=== PATIENT | male | born 1950 | race Caucasian/White ===

== ENCOUNTER 2016-10-24 21:10 | Inpatient (IN) | payer MEDICARE, OTHER ==
--- NOTE | ~2016-10-24 | CN ---
Consultation Report [facility] [address] [place]. [address] NAME: DE ARMAS : 50 STATUS : ADM IN PAT#: [id number] AGE: 66 ADM/REG DATE : 10/25/16 MR#: [id number] REPORT SERV DATE: 10/27/16 DICTATED BY: NATO PAN JR. DATE: 10/26/16 REPORT STATUS : Draft TRANSCRIBED BY: MODAndree DATE: 10/26/16 DATE OF CONSULTATION: 10/26/2016 [facility] MECHANIC: Dr. Rios. REASON FOR CONSULTATION: Atrial fibrillation with slow ventricular response with long pauses up to 3.8 seconds. No current symptoms. 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 BNP elevated at 413 in the presence of obesity, obstructive sleep apnea with only occasional CPAP use at home. Chronic atrial fibrillation with rate control with digitalis and nadolol. Renal function worse recently, therefore, affects of nadolol may be magnified. Also digitalis affect may be magnified. He is diabetic, hypertensive, hyperlipidemic. BMI is 43. He has been hospitalized in the past for what has been called diastolic CHF. He is on Pradaxa for anticoagulation with his chronic atrial fibrillation. He has coronary heart disease, but has a MPI from August of this year, which showed no ischemia. Hospital medication list reviewed. Home medication list reviewed. Allergic to Celebrex. Presume also allergic to sulfa, etc. FAMILY HISTORY: Noncontributory. SOCIAL HISTORY: Unkempt, lethargic. Obstructive sleep apnea, noncompliant with regular CPAP use. No illicit drugs. PHYSICAL EXAMINATION: VITAL SIGNS: Blood pressure 111/68, pulse is 65 and irregularly irregular with rates between 46 and 76 charted today. Long pauses are noted on telemetry strips, however. Respirations 16, afebrile. HEENT: No xanthelasma. NECK: No JVD at 30 degrees, no thyromegaly, no carotid bruit. LUNGS: Few wheezes and rhonchi are audible. COR: No thrills, heaves, normal S1, S2. No gallop. No rub. No murmur. ABD: Soft, nontender, no hepatosplenomegaly, no mass. EXT: Bilateral pitting edema. MS: Back without spine or costovertebral angle tenderness. NEURO: Symmetric findings. Echocardiogram from approximately six weeks ago shows mild left ventricular enlargement with mixed CHF, ejection fraction 45% with global hypokinesis and moderate left atrial enlargement. Consultation Report [facility] [address] [place]. [address] NAME: DE ARMAS : 50 STATUS : ADM IN PAT#: [id number] AGE: 66 ADM/REG DATE : 10/25/16 MR#: [id number] REPORT SERV DATE: 10/27/16 DICTATED BY: NATO PAN JR. DATE: 10/26/16 REPORT STATUS : Draft TRANSCRIBED BY: MODL DATE: 10/26/16 MPI unremarkable earlier this year as well. Troponins have been borderline at 0.04 and 0.05. DISCUSSION: Long pauses with chronic atrial fibrillation on digitalis and nadolol, both of which are excreted through kidneys. Kidney function is a bit worse at 1.3 creatinine. TSH is normal. Troponins are flat. No angina. Chest x-ray clear currently. PLAN: Hold beta-valente and digitalis and provide p.r.n. atropine if necessary. Perhaps switch to carvedilol instead of nadolol due to renal excretion of the nadolol. May try to get by without digitalis. CARLOS/RAMBO Nato Pan Jr., M.D. / [id number] CC: Rashmi Pineda M.D.
--- NOTE | ~2016-10-24 | HP ---
History And Physical [facility] [address] [facility] [place]. [address] NAME: DE LAZO : 50 STATUS : ADM Haritha PAT#: [id number] AGE: 66 ADM/REG DATE : 10/25/16 MR#: [id number] REPORT SERV DATE: 10/25/16 DICTATED BY: RICARDO PRESCOTT DATE: 10/25/16 REPORT STATUS : Draft TRANSCRIBED BY: MODL DATE: 10/25/16 DATE OF ADMISSION: 10/25/2016 CHIEF COMPLAINT: Shortness of breath and cough. HISTORY OF PRESENT ILLNESS: This is a 66-year-old male with a history of congestive heart failure, coronary artery disease with stents and atrial fibrillation who presents to the emergency room at [facility] with the above-mentioned complaint. History is obtained from the patient, and reviewing data available on the [employer] system. According to the patient, he had been in his usual state of health until about a week or two ago, when he suddenly started having shortness of breath and progressive dyspnea with exertion. He also noticed his feet were swelling up. His legs were swelling up. He also had a nonproductive cough which had become so bad in the last two days or so when he actually passed out while he was sitting on a recliner and had a severe bout of coughing. He did not call anybody when he came to but he says he was out for an unknown period of time. Today, his symptoms continued, and he finally decided to come to the emergency room to be evaluated. In the emergency room, he appeared to have an exacerbation of his congestive heart failure with volume overload and an elevated troponin as well, and Hospitalist Service is asked to admit him for further evaluation and treatment. At the time of my evaluation, he denied any chest pain or palpitations. He did have orthopnea. He had a cough, which was essentially nonproductive, not associated with hemoptysis, night sweats, or weight loss. He did have syncopal episode as mentioned above. He did feel feverish, but had not checked his temperature. No chills. He did not have any nausea, vomiting, or diarrhea. No other history of recent travel or exposures. PAST MEDICAL HISTORY: Significant for coronary artery disease with stent, history of atrial fibrillation on Pradaxa, history of COPD with obstructive sleep apnea, hypertension, diabetes mellitus type 2. He also has depression. SOCIAL HISTORY: He does not smoke, drink, or use recreational drugs. FAMILY HISTORY: Noncontributory. MEDICATIONS: At home were reviewed by me in the chart today and reordered by me. REVIEW OF SYSTEMS: As in history of present illness. All other systems were reviewed in detail and are quite unremarkable. PHYSICAL EXAMINATION: GENERAL: This is a pleasant 66-year old, who is not in any acute distress. He is alert, History And Physical [address] [address] NAME: DE LAZO : 50 STATUS : ADM Haritha PAT#: [id number] AGE: 66 ADM/REG DATE : 10/25/16 MR#: [id number] REPORT SERV DATE: 10/25/16 DICTATED BY: RICARDO PRESCOTT DATE: 10/25/16 REPORT STATUS : Draft TRANSCRIBED BY: RAMBO DATE: 10/25/16 awake, oriented to time, place, and person. HEENT: His head is atraumatic, normocephalic. His pupils are equal, reacting to light and accommodating. External ocular muscles are intact. Membranes are moist and pink. Sclerae are nonicteric. NECK: Supple with no jugular venous distention, lymphadenopathy, or thyromegaly. LUNGS: Clear to auscultation with no wheezes, rubs, or crackles. HEART: Heart sounds were regular with no murmurs, rubs, or gallops. ABDOMEN: Soft, nontender. Bowel sounds are present. EXTREMITIES: Showed bilateral pitting lower extremity edema with no cyanosis or clubbing. NEUROLOGIC: Grossly intact. No focal deficits. He was able to move all four extremities. VITAL SIGNS: His temperature was 101.5, pulse 80, respirations 20 a minute, blood pressure was 169/105, oxygen saturations were 96%, breathing 2 L of oxygen via nasal cannula. LABORATORY DATA: Reviewed on the [employer] system showed a pH of 7.37 on arterial blood gas,. PCO2 was 45, PaO2 97, and bicarb was 24.4. This was on 2 L of oxygen via nasal cannula. His CMP was within normal limits. Blood glucose 153, his magnesium was 1.0, and calcium 7.5. Troponin was 0.05. Lactate was 1.5 today. CBC showed a white blood cell count of 9800, hemoglobin was 12.6, hematocrit 39.4, and platelet count was 168,000. His prothrombin time was 16 and INR 1.3 today. Urinalysis was grossly unremarkable. Films of the chest x- ray were reviewed by me on the PACS today and interpreted by me. Per my interpretation, there are increased vascular markings consistent with congestive heart failure. There are no lobar consolidations or effusions seen. Otherwise normal bony architecture. A 12-lead EKG done in the emergency room was reviewed and interpreted by me. There is atrial fibrillation at a rate of 81 per minute without any acute ST-T changes. IMPRESSION: 1. Acute on chronic diastolic congestive heart failure. 2. Volume overload. 3. Elevated troponin. 4. Hypomagnesemia. 5. Chronic obstructive pulmonary disease with acute exacerbation. 6. Diabetes mellitus type 2. 7. Depression. PLAN: 1. We will admit Mr. Lazo to the Hospitalist Service with telemetry for a 24-hour observation. We will give him IV diuretics for volume overload, strict I's and O's and daily weights as well. He had echo done on September 15 so we will defer an echocardiogram again at this point. We will follow serial troponin levels and consult Cardiology if abnormal. We believe it may be due to his volume overload and congestive heart failure. We will start blood sugar control with NovoLog given subcutaneously. 2. Bronchodilator treatments and supplemental oxygen. Continue supplemental oxygen therapy. We will continue other treatments for sleep apnea and other treatments that he is on at home. We will also replace magnesium right now, and follow up in the morning as well. 3. He is on Pradaxa. We will continue this as well. History And Physical [address] [address] NAME: DE LAZO : 50 STATUS : ADM Haritha PAT#: [id number] AGE: 66 ADM/REG DATE : 10/25/16 MR#: [id number] REPORT SERV DATE: 10/25/16 DICTATED BY: RICARDO PRESCOTT DATE: 10/25/16 REPORT STATUS : Draft TRANSCRIBED BY: MODL DATE: 10/25/16 I have discussed the above plans with the patient. Questions were answered, and he is agreeable to the above recommendations. Hospitalist Service will be following him during his stay here. /RAMBO Ricardo Prescott M.D. / [id number] CC: Lenard Lind MD
--- NOTE | ~2016-10-24 | IDS ---
Interim Discharge Summary [facility] [address] [place]. [address] NAME: DE LAZO : 50 STATUS : ADM IN PAT#: [id number] AGE: 66 ADM/REG DATE : 10/25/16 MR#: [id number] REPORT SERV DATE: 10/29/16 DICTATED BY: VIOLA BRICE DATE: 10/29/16 REPORT STATUS : Draft TRANSCRIBED BY: MODAndree DATE: 10/29/16 ADMISSION DATE: 10/25/2016 DISCHARGE DATE: DIAGNOSES: 1. Systolic and diastolic congestive heart failure exacerbation. 2. Fluid overload. 3. Fever resolved, suspect secondary to upper respiratory infection. 4. Atrial fibrillation with sinus pauses. 5. Troponinemia. 6. History of obstructive sleep apnea. 7. Post-tussive syncope resolved. 8. Type 2 diabetes. CONSULTANTS: Cardiology with Dr. Pan. HOSPITALISTS: Dr. Ricardo Dubois and Dr. Brice. HOSPITAL COURSE: Please see H and P dictated by Dr. Dubois. This is a 66 years old male with a past medical history of atrial fibrillation, ischemic cardiomyopathy, presented with shortness of breath and increased lower extremity edema. The patient states he had a coughing fit and actually experienced a syncopal episode after coughing while sitting in his recliner. The patient presented to [facility] ER in fluid overload. He was admitted to a bus driver/monitor and placed on IV diuretics for diuresing. Also, electrolytes were replaced. Also being seen for mild elevation of troponin which is secondary to fluid overload. No signs of ACS. Also Cardiology were consulted. The patient was noted to have some sinus pauses, therefore Cardiology stopped the patient's nadolol as well as digoxin, however, approximately two days later, the patient had another recurrence of sinus pauses. According to Cardiology, the patient requires approximately 5 days to allow all blockadal medications to come out of his system and states if the patient has any recurrence of sinus pauses after 5 to 6 days, then at that time, to consider a pacemaker; however, they recommend for the patient to follow up in their office. The patient is improving but with slow progression, still has some signs of fluid overload but with good negative balance for urine output. We will give an extra dose of IV Bumex with his scheduled Bumex for better diuresing. We will consult Physical Therapy for evaluation. Also nurses as of yet to check O2 saturation with ambulation. The patient will be followed by Dr. Benjamin Gomez, who will attend to Mr. Lazo's care. [facility]/MODL Viola Brice M.D. Interim Discharge Summary [address] [address] NAME: DE LAZO : 50 STATUS : ADM IN [facility]#: [id number] AGE: 66 ADM/REG DATE : 10/25/16 MR#: [id number] REPORT SERV DATE: 10/29/16 DICTATED BY: VIOLA BRICE DATE: 10/29/16 REPORT STATUS : Draft TRANSCRIBED BY: RAMBO DATE: 10/29/16 / [id number] CC: Viola Brice M.D.
--- NOTE | ~2016-10-24 | DS ---
Discharge Summary [address] [address] NAME: DE ARMAS : 50 STATUS : DIS IN PAT#: [id number] AGE: 66 ADM/REG DATE : 10/25/16 MR#: [id number] REPORT SERV DATE: 11/02/16 DICTATED BY: ALYCIA GOMEZ DATE: 11/01/16 REPORT STATUS : Draft TRANSCRIBED BY: MODL DATE: 11/01/16 ADMISSION DATE: 10/25/2016 DISCHARGE DATE: 11/01/2016 DISCHARGE DIAGNOSES: 1. Acute on chronic hypoxemic respiratory failure. 2. Acute on chronic mixed congestive heart failure with left ventricular ejection fraction of 45%. 3. Chronic atrial fibrillation, on Pradaxa. 4. Pauses while on digoxin and nadolol resolved off same, now on rate control with carvedilol. 5. Coronary artery disease, post stenting, positive troponin this admission, demand ischemia. 6. Chronic obstructive pulmonary disease. 7. Morbid obesity. 8. Sleep apnea. 9. Obesity hypoventilation syndrome. 10.Type 2 diabetes. 11.Hypertension. 12.Gout. 13.Depression. 14.Chronic anemia. 15.Hemoccult-positive stool with history of EGD 10/2012 showing gastritis, colonoscopy 10/2012 showing colon polyps. Further outpatient followup needed. 16.Syncope, present on admission. 17.Fever, present on admission. 18.Acute kidney injury, present on admission. 19.Hearing impairment. OPERATIONS AND PROCEDURES: None. PRESENT ILLNESS: This is a 66-year-old white male who was triaged in the emergency room on 10/24/2016 at 1947 hours complaining of shortness of breath. Admission vital signs; blood pressure 169/105, temp 101.5, pulse 80, respirations 20, and O2 saturation 96% on 2 L. After evaluation in the emergency room, he was referred to the Hospitalist Service for admission. He was seen by Dr. Ricardo Dubois and admitted as described on admission history and physical examination. Additional history included one to two weeks of progressive shortness of breath, nonproductive cough, and leg swelling. ADDITIONAL HISTORY: Per Dr. Dubois. PHYSICAL EXAMINATION: Per Dr. Dubois. Discharge Summary [address] [address] NAME: DE ARMASN : 50 STATUS : DIS IN PAT#: [id number] AGE: 66 ADM/REG DATE : 10/25/16 MR#: [id number] REPORT SERV DATE: 11/02/16 DICTATED BY: ALYCIA GOMEZ DATE: 11/01/16 REPORT STATUS : Draft TRANSCRIBED BY: RAMBO DATE: 11/01/16 ADMISSION LABORATORY: Per Dr. Dubois. HOSPITAL COURSE: He was admitted to [address] [place] [address] with impression: 1. Acute on chronic diastolic heart failure. 2. Volume overload. 3. Elevated troponin. 4. Hypomagnesemia. 5. COPD with acute exacerbation. 6. Diabetes type 2. 7. Depression. His hospitalist care was assumed by Dr. Rashmi Pineda. His hospital course from admission through 10/29/2016 is as outlined on interim summary dictated by Dr. Pineda on 10/29/2016. His hospitalist care was assumed by the undersigned on 10/30/2016. He was followed through discharge. Over the course of his hospitalization, he diuresed 11.6 kg. Associated with this, there was improvement, but not complete resolution in his dyspnea. There was resolution in his lower extremity edema. His O2 saturation at rest on 10/31/2016 was 87%. This dropped further with ambulation the day of discharge to 83%. He is on home O2 at night. He will need 24-hour O2 at this time. He did not have further syncopal episodes while hospitalized. Additional history obtained after admission included this occurred with protracted coughing while sitting in his recliner. Off nadolol and digoxin, his atrial fibrillation rate increased. He was started on carvedilol by Cardiology. His heart rate was satisfactorily controlled with this. He had fever on admission. He was treated with Zithromax. His fever resolved. A procalcitonin level was 0.40 on admission. His white blood cell count was 9.8 and remained normal while hospitalized. Influenza screening, urinary streptococcal, and urinary Legionella antigen screenings were all negative. Urinalysis did not show any discrete abnormalities, and two blood cultures were no growth. Followup chest x-rays did not show any definite infiltrate. His creatinine was 1.09 on admission. It increased to 1.34 on the 7th and was 1.15 at discharge. His hemoglobin was 12.6 on admission and 13.7 at discharge. A ferritin was 223 and a B12 level 363. No monoclonal protein was present on a serum protein electrophoresis. One stool was checked for occult blood and is positive. This will need further followup by Dr. Malik on office followup. Discharge Summary [facility] [id number] [place]. [address] NAME: DE ARMAS : 50 STATUS : DIS IN PAT#: [id number] AGE: 66 ADM/REG DATE : 10/25/16 MR#: [id number] REPORT SERV DATE: 11/02/16 DICTATED BY: ALYCIA GOMEZ DATE: 11/01/16 REPORT STATUS : Draft TRANSCRIBED BY: RAMBO DATE: 11/01/16 He was seen by the heart failure team and will be followed up at discharge. He was seen by Physical Therapy and home with Home Health Care Physical Therapy was recommended. He was seen by [facility] Cardiology, Dr. Rios, today as well as the undersigned. He is symptomatically near baseline and it is felt that he has achieved a level of improvement and stability where he could be safely discharged home. He will see Dr. Malik in seven days. He will see Dr. Rios in three to four weeks. He will have [facility] for home evaluation, med rec, OT and PT evaluation and treatment. DISCHARGE MEDICATIONS: Stiolto Respimat one puff twice daily, Bumex 2 mg twice daily, colchicine 0.6 mg daily, carvedilol 3.125 mg twice daily, Celexa 40 mg daily, Pradaxa 150 mg twice daily, Prinivil 2.5 mg daily, Prilosec 40 mg daily, potassium 10 mEq daily, Percocet 10/325 four times daily as needed, Klonopin 1 mg daily as needed, Crestor 10 mg daily, Flexeril 10 mg daily as needed, Voltaren gel as needed, and Mucinex as needed. He will not take Lanoxin or Corgard. He was counseled regarding the use of Klonopin, Percocet, and Flexeril. It was suggested that he limit his use of these medications to nighttime if possible. It was suggested that if he takes a daytime dose that he get in a chair, place his oxygen on, and not get up until the effects wear off. He was asked not to drive under the influence of these medications. Home O2 was arranged for 24-hour use. Discharge time greater than 30 minutes. DICTATED BY: Alycia Gomez M.D. DD/RAMBO Alycia Gomez M.D. / [id number] CC: Enedina Benítez M.D. W. Timothy Ballard, M.D.
[~2016-10-24 21:10] MED LIST: AMB10 PO; AMBIEN CR12.5 MG PO; ATV1 PO; BUM1 PO; CALTRAT600 PO; CARDCD180 PO; CELEXA40 MG PO; CENTRUM TAB1 TAB PO; COR20 PO; COREG; COUMADIN6 MG PO; CRESTOR10 PO; CRESTOR5 MG PO; DIGITEK0.125 MG PO; DIOVAN HCT320 MG/25 PO; DIOVAN/HCT; FLEX PO; FLEXERIL5 MG PO; GLUCOPHAGE1000 MG PO; GLUCOPHXR PO; GLUCPH PO; HYCODAN1 M1 PO; IBU400 PO; IRON TABS; IRON325 MG PO; K-TABS10 MEQ PO; KLOR-CON 1010 MEQ PO; L40 PO; LEVAQUIN750 MG PO; LEXAPRO10 PO; LORTAB10 PO; MAGOX4 PO; NADOL; OYST-CAL500 MG PO; P20 PO; PERCOCET1 TA4 PO; POTASSIUM; PRADAXA150 MG PO; PRADAXA75 MG PO; PRILO PO; PRILOSEC40 MG PO; SPIRIVA INH; SYMBICORT 160/41 INH INH; UNKNOWN MEDS
[2016-10-24 21:51] LABS: BE (BASE EXCESS) -1.5 MEQ/L (0 +/- 2.5); CARBOXYHEMOGLOBIN 0.1 % (0-3); DEVICE NC; HCO3 (ACTUAL BICARBONATE) 24.4 MEQ/L (23-27); HEMOBLOGIN CONTENT 12.9 G/DL (14-18); INSTRUMENT SERIAL # 8087; METHEMOGLOBIN 0.1 % (0-3); O2 CONTENT 16.7 VOL% (18-24); PCO2 (CO2 TENSION) 45 MMHG (35-45); PO2 (O2 TENSION) 97 MMHG (79-93); SAMPLE Arterial; pH 7.35 (7.37-7.43)
[2016-10-24] MEDS ORDERED: PERCOCET 10/3251 TAB PO (22:33)
[2016-10-24] MEDS ORDERED: CELEXA40 MG PO (22:34)
[2016-10-24] MEDS ORDERED: BUM2 PO (22:34)
[2016-10-24] MEDS ORDERED: STIOLTO RESPIMAT4 GM INH (22:34)
[2016-10-24] MEDS ORDERED: KLONO1 PO (22:35)
[2016-10-24] MEDS ORDERED: LAN125 PO (22:35)
[2016-10-24] MEDS ORDERED: PRILOSEC40 MG PO (22:35)
[2016-10-24] MEDS ORDERED: COR40 PO (22:35)
[2016-10-24] MEDS ORDERED: CRESTOR10 PO (22:36)
[2016-10-24] MEDS ORDERED: FLEX PO (22:36)
[2016-10-24] MEDS ORDERED: COLCRYS0.6 MG PO (22:36)
[2016-10-24] MEDS ORDERED: KDUR10 PO (22:36)
[2016-10-24] MEDS ORDERED: PRADAXA150 MG PO (22:36)
[2016-10-24] MEDS ORDERED: VOLTAREN1 % TOP (22:38)
[2016-10-24 22:39] LABS: BASOPHILS 0.2 %; BASOPHILS ABSOLUTE 0.02 10/3/uL (0.0-0.16); ER CBC TAT 0 Hrs 07 Mins; HEMATOCRIT 39.4 % (40.0-51.0); HEMOGLOBIN 12.6 g/dL (13.6-17.8); IMMATURE GRANULOCYTES 0.4 %; IMMATURE GRANULOCYTES ABSOLUTE 0.04 10/3/uL (0.0-0.11); LYMPHOCYTES 16.3 %; LYMPHOCYTES ABSOLUTE 1.59 10/3/uL (0.67-4.30); MEAN CORPUSCULAR HEMOGLOB 29.2 pg (26.0-34.0); MEAN CORPUSCULAR VOLUME 91.4 fL (80-100); MEAN PLATELET VOLUME 9.2 fL (9.2-13.0); MONOCYTES 6.7 %; MONOCYTES ABSOLUTE 0.66 10/3/uL (0.21-1.20); NEUTROPHILS 74.4 %; NEUTROPHILS ABSOLUTE 7.27 10/3/uL (2.02-8.40); RED CELL COUNT 4.31 10/6/uL (4.7-6.1); WHITE BLOOD CELLS 9.8 10/3/uL (4.5-10.5)
[2016-10-24 22:42] LABS: MANUAL DIFF NO %; PLATELET COUNT 168 10/3/uL (150-400); RBC DISTRIBUTION WIDTH 15.7 % (12.0-16.0)
[2016-10-24 22:48] LABS: INTERNATIONAL NORMAL RATI 1.3 UNITS (-); PARTIAL THROMBO TIME 38.6 SEC (22.5-37.2); PROTIME (NOT ORD) 16.1 SEC (12.0-14.5)
[2016-10-24] MEDS ORDERED: COLD PO (22:54)
[2016-10-24] MEDS ORDERED: MUCINEX COUGH PO (22:54)
[2016-10-24 22:55] LABS: ACETAMINOPHEN LEVEL (TYLENOL) 8.7 MCG/ML (10.0-20.0); BUN (BLOOD UREA NITROGEN) 20 MG/DL (6-23); CALCIUM, SERUM 7.5 MG/DL (8.5-10.4); CHLORIDE, SERUM 109 MMOL/L (96-112); CO2 (CARBON DIOXIDE) 27 MMOL/L (24-34); CREATININE 1.09 MG/DL (0.70-1.30); GFR AFRICAN AMERICAN 82 ML/MIN (>=60); GFR NON AFRICAN AMERICAN 70 ML/MIN (>=60); GLUCOSE, SERUM 153 MG/DL (60-99); POTASSIUM, SERUM 4.3 MMOL/L (3.5-5.3); SODIUM, SERUM 143 MMOL/L (135-148)
[2016-10-24 22:57] LABS: CHEST PAIN PROFILE TAT 0 Hrs 25 Mins; TROPONIN I 0.05 NG/ML (<0.05)
[2016-10-24 22:58] LABS: ALCOHOL < 10 MG/DL (0); SALICYLATE < 1.7 MG/DL (-)
[2016-10-24 23:18] LABS: ASCORBIC ACID (UR NOT ORDER) 40 (NEG); BILIRUBIN, URINE NEGATIVE (NEG); ER URINALYSIS TAT 0 Hrs 00 Mins; KETONE, URINE NEGATIVE (NEG); LEUKOCYTE ESTERASE(NOT OR NEG (NEG); NITRITE (URINE) NEG (NEG); WBC (NOT ORDERED) (RFLEX) 5 (0-5)
[2016-10-24 23:58] LABS: AMPHETAMINES (NOT ORD) NEG (NEG); BARBITURATES (NOT ORDERED NEG (NEG); BENZODIAZEPINES (NOT ORD) NEG (NEG); CANNABINOIDS (THC) NEG (NEG); COCAINE (NOT ORDERED) NEG (NEG); PHENCYCLIDINE(PCP) NEG (NEG); TRICYCLICS NEG (NEG)
[2016-10-24 23:59] LABS: OPIATES NEG (NEG)
[2016-10-25 06:02] LABS: BASOPHILS 0.2 %; BASOPHILS ABSOLUTE 0.02 10/3/uL (0.0-0.16); EOSINOPHILS 2.4 %; EOSINOPHILS ABSOLUTE 0.21 10/3/uL (0.0-0.53); HEMATOCRIT 39.2 % (40.0-51.0); HEMOGLOBIN 12.4 g/dL (13.6-17.8); IMMATURE GRANULOCYTES 0.8 %; IMMATURE GRANULOCYTES ABSOLUTE 0.07 10/3/uL (0.0-0.11); LYMPHOCYTES 12.7 %; LYMPHOCYTES ABSOLUTE 1.12 10/3/uL (0.67-4.30); MANUAL DIFF NO %; MEAN CORPUS HGB CONC 31.6 g/dL (32.0-36.0); MEAN CORPUSCULAR HEMOGLOB 29.2 pg (26.0-34.0); MEAN CORPUSCULAR VOLUME 92.5 fL (80-100); MEAN PLATELET VOLUME 9.5 fL (9.2-13.0); MONOCYTES 10.9 %; MONOCYTES ABSOLUTE 0.96 10/3/uL (0.21-1.20); NEUTROPHILS ABSOLUTE 6.43 10/3/uL (2.02-8.40); PLATELET COUNT 165 10/3/uL (150-400); RBC DISTRIBUTION WIDTH 15.6 % (12.0-16.0); RED CELL COUNT 4.24 10/6/uL (4.7-6.1); WHITE BLOOD CELLS 8.8 10/3/uL (4.5-10.5)
[2016-10-25 06:22] LABS: BUN (BLOOD UREA NITROGEN) 20 MG/DL (6-23); CALCIUM, SERUM 7.8 MG/DL (8.5-10.4); CHLORIDE, SERUM 106 MMOL/L (96-112); CO2 (CARBON DIOXIDE) 24 MMOL/L (24-34); CREATININE 1.04 MG/DL (0.70-1.30); GFR AFRICAN AMERICAN 86 ML/MIN (>=60); GFR NON AFRICAN AMERICAN 74 ML/MIN (>=60); GLUCOSE, SERUM 163 MG/DL (60-99); TROPONIN I 0.04 NG/ML (<0.05)
[2016-10-25 06:23] LABS: PHOSPHORUS, SERUM 3.6 MG/DL (2.5-4.5); SODIUM, SERUM 136 MMOL/L (135-148)
[2016-10-26 05:32] LABS: CALCIUM, SERUM 7.6 MG/DL (8.5-10.4); CHLORIDE, SERUM 105 MMOL/L (96-112); CO2 (CARBON DIOXIDE) 25 MMOL/L (24-34); CREATININE 1.34 MG/DL (0.70-1.30); GFR AFRICAN AMERICAN 64 ML/MIN (>=60); GFR NON AFRICAN AMERICAN 55 ML/MIN (>=60); GLUCOSE, SERUM 176 MG/DL (60-99); POTASSIUM, SERUM 4.2 MMOL/L (3.5-5.3); SODIUM, SERUM 134 MMOL/L (135-148)
[2016-10-26 05:33] LABS: BUN (BLOOD UREA NITROGEN) 26 MG/DL (6-23)
[2016-10-26 14:27] LABS: INFLUENZA A SCREEN NEGATIVE (NEGATIVE); INFLUENZA B SCREEN NEGATIVE (NEGATIVE)
[2016-10-27 04:51] LABS: BUN (BLOOD UREA NITROGEN) 26 MG/DL (6-23); CALCIUM, SERUM 7.9 MG/DL (8.5-10.4); CHLORIDE, SERUM 103 MMOL/L (96-112); CO2 (CARBON DIOXIDE) 28 MMOL/L (24-34); GFR AFRICAN AMERICAN 73 ML/MIN (>=60); GFR NON AFRICAN AMERICAN 63 ML/MIN (>=60); GLUCOSE, SERUM 150 MG/DL (60-99); POTASSIUM, SERUM 4.3 MMOL/L (3.5-5.3); SODIUM, SERUM 133 MMOL/L (135-148)
[2016-10-28 10:50] LABS: POTASSIUM, SERUM 4.5 MMOL/L (3.5-5.3)
[2016-10-29 08:42] LABS: BUN (BLOOD UREA NITROGEN) 26 MG/DL (6-23); CALCIUM, SERUM 8.8 MG/DL (8.5-10.4); CHLORIDE, SERUM 99 MMOL/L (96-112); CREATININE 1.03 MG/DL (0.70-1.30); GFR AFRICAN AMERICAN 87 ML/MIN (>=60); GFR NON AFRICAN AMERICAN 75 ML/MIN (>=60); GLUCOSE, SERUM 144 MG/DL (60-99); POTASSIUM, SERUM 4.3 MMOL/L (3.5-5.3)
[2016-10-29 08:44] LABS: CO2 (CARBON DIOXIDE) 35 MMOL/L (24-34); SODIUM, SERUM 140 MMOL/L (135-148)
[2016-10-30 10:39] LABS: BUN (BLOOD UREA NITROGEN) 29 MG/DL (6-23); CHLORIDE, SERUM 95 MMOL/L (96-112); CO2 (CARBON DIOXIDE) 38 MMOL/L (24-34); GFR AFRICAN AMERICAN 90 ML/MIN (>=60); GFR NON AFRICAN AMERICAN 78 ML/MIN (>=60); POTASSIUM, SERUM 4.1 MMOL/L (3.5-5.3); SODIUM, SERUM 140 MMOL/L (135-148)
[2016-10-30 10:40] LABS: GLUCOSE, SERUM 214 MG/DL (60-99)
[2016-10-30 12:09] LABS: FERRITIN 223 NG/ML (26-388)
[2016-10-30 14:14] LABS: T PROTEIN (ELECT)(NOT OR 6.8 G/DL (6.0-8.5)
[2016-10-30 16:09] LABS: BASOPHILS 0.2 %; BASOPHILS ABSOLUTE 0.01 10/3/uL (0.0-0.16); EOSINOPHILS 1.2 %; EOSINOPHILS ABSOLUTE 0.07 10/3/uL (0.0-0.53); HEMATOCRIT 42.6 % (40.0-51.0); HEMOGLOBIN 13.9 g/dL (13.6-17.8); IMMATURE GRANULOCYTES 1.2 %; IMMATURE GRANULOCYTES ABSOLUTE 0.07 10/3/uL (0.0-0.11); LYMPHOCYTES 24.8 %; LYMPHOCYTES ABSOLUTE 1.51 10/3/uL (0.67-4.30); MANUAL DIFF NO %; MEAN CORPUS HGB CONC 32.6 g/dL (32.0-36.0); MEAN PLATELET VOLUME 9.2 fL (9.2-13.0); MONOCYTES 9.2 %; MONOCYTES ABSOLUTE 0.56 10/3/uL (0.21-1.20); NEUTROPHILS 63.4 %; NEUTROPHILS ABSOLUTE 3.86 10/3/uL (2.02-8.40); PLATELET COUNT 225 10/3/uL (150-400); RED CELL COUNT 4.63 10/6/uL (4.7-6.1); WHITE BLOOD CELLS 6.1 10/3/uL (4.5-10.5)
[2016-10-30 16:30] LABS: ALBUMIN 2.7 G/DL (3.5-5.0); BUN (BLOOD UREA NITROGEN) 29 MG/DL (6-23); CALCIUM, SERUM 8.8 MG/DL (8.5-10.4); CHLORIDE, SERUM 94 MMOL/L (96-112); CO2 (CARBON DIOXIDE) 38 MMOL/L (24-34); CREATININE 1.19 MG/DL (0.70-1.30); GFR AFRICAN AMERICAN 73 ML/MIN (>=60); GFR NON AFRICAN AMERICAN 63 ML/MIN (>=60); GLUCOSE, SERUM 172 MG/DL (60-99); POTASSIUM, SERUM 4.2 MMOL/L (3.5-5.3); SGOT(AST) 16 U/L (5-40); SGPT(ALT) 20 U/L (5-65); SODIUM, SERUM 139 MMOL/L (135-148); TOTAL BILIRUBIN 0.9 MG/DL (0-1.2); TOTAL PROTEIN 7.1 G/DL (6.0-8.5); TROPONIN I <0.02 NG/ML (<0.05)
[2016-10-30 16:31] LABS: A/G RATIO 0.6 (0.7-1.9); ALKALINE PHOSPHATASE 146 U/L (45-117); GLOBULIN 4.4 G/DL (2.5-4.1)
[2016-10-31 08:18] LABS: HEMATOCRIT 42.4 % (40.0-51.0); HEMOGLOBIN 13.7 g/dL (13.6-17.8); MANUAL DIFF YES %; MEAN CORPUS HGB CONC 32.3 g/dL (32.0-36.0); MEAN CORPUSCULAR VOLUME 92.8 fL (80-100); MEAN PLATELET VOLUME 9.5 fL (9.2-13.0); PLATELET COUNT 250 10/3/uL (150-400); RBC DISTRIBUTION WIDTH 14.8 % (12.0-16.0); RED CELL COUNT 4.57 10/6/uL (4.7-6.1); WHITE BLOOD CELLS 5.9 10/3/uL (4.5-10.5)
[2016-10-31 08:35] LABS: BUN (BLOOD UREA NITROGEN) 29 MG/DL (6-23); CHLORIDE, SERUM 92 MMOL/L (96-112); CO2 (CARBON DIOXIDE) 38 MMOL/L (24-34); CREATININE 1.15 MG/DL (0.70-1.30); GFR AFRICAN AMERICAN 76 ML/MIN (>=60); GFR NON AFRICAN AMERICAN 66 ML/MIN (>=60); GLUCOSE, SERUM 178 MG/DL (60-99); POTASSIUM, SERUM 3.8 MMOL/L (3.5-5.3); SODIUM, SERUM 136 MMOL/L (135-148); TROPONIN I <0.02 NG/ML (<0.05)
[2016-10-31 09:00] LABS: BAND NEUTROPHILS 12 %; BASOPHILS 1 %; BASOPHILS ABSOLUTE (CALC) 0.06 10/3/uL (0.0-0.16); EOSINOPHILS 2 %; EOSINOPHILS ABSOLUTE (CALC) 0.12 10/3/uL (0.0-0.53); IMMATURE GRANS ABSOLUTE (CALC) 0.06 10/3/uL (0.0-0.11); LYMPHOCYTES 24 %; LYMPHOCYTES ABSOLUTE (CALC) 1.42 10/3/uL (0.67-4.30); MONOCYTES 9 %; MONOCYTES ABSOLUTE (CALC) 0.53 10/3/uL (0.21-1.20); MYELOCYTES 1 %; NEUTROPHILS ABSOLUTE (CALC) 3.72 10/3/uL (2.02-8.40); SEGMENTED NEUTROPHIL (0) 51 %; TOTAL NUCLEATED CELLS 100
[2016-10-31 09:01] LABS: PLATELET ESTIMATE ADQ (ADEQUATE); RBC MORPHOLOGY NORM (NORMAL)
[2016-10-31 10:13] LABS: A/G 0.97 RATIO (0.9-2.10); ALB RELATIVE % 49.2 % (60.0-89.0); ALBUMIN (ELECTRO) 3.35 GM/DL (3.2-5.5); ALPHA 1 (ELECTRO) 0.29 GM/DL (0.1-0.4); ALPHA 1 RELAT % (NOT ORD) 4.2 % (1.0-4.0); ALPHA 2 (ELECTRO) 1.16 GM/DL (0.5-1.10); ALPHA 2 RELAT % 17.1 % (4.5-26.0); BETA GLOBULIN (SPE) 0.99 GM/DL (0.60-1.30); BETA RELATIVE % 14.6 % (9.0-22.0); GAMMA GLOBULIN (SPE) 1.01 G/DL (0.70-1.60); GAMMA RELAT % 14.9 % (6.0-22.0)
[2016-11-01 07:14] LABS: BUN (BLOOD UREA NITROGEN) 30 MG/DL (6-23); CALCIUM, SERUM 8.8 MG/DL (8.5-10.4); CHLORIDE, SERUM 94 MMOL/L (96-112); CO2 (CARBON DIOXIDE) 37 MMOL/L (24-34); CREATININE 1.15 MG/DL (0.70-1.30); GFR AFRICAN AMERICAN 76 ML/MIN (>=60); GFR NON AFRICAN AMERICAN 66 ML/MIN (>=60); GLUCOSE, SERUM 180 MG/DL (60-99); POTASSIUM, SERUM 3.6 MMOL/L (3.5-5.3); SODIUM, SERUM 137 MMOL/L (135-148)
[2016-11-01] MEDS ORDERED: COREG3 PO (19:10)
[2016-11-01] MEDS ORDERED: PRIN2.5 PO (19:11)
== END 2016-11-01 19:38 | disposition home health service (06) | DRG 291 ==
LOC: ER 21:10 → 6NO 10-25 02:59
PROVIDERS: Internal Medicine; Internal Medicine Hematology & Oncology; Nurse Practitioner Family
DX: I11.0 Hypertensive heart disease with heart failure (principal); J96.21 Acute and chronic respiratory failure with hypoxia; N17.9 Acute kidney failure, unspecified; E66.2 Morbid (severe) obesity with alveolar hypoventilation; E11.9 Type 2 diabetes mellitus without complications; D64.9 Anemia, unspecified; J44.1 Chronic obstructive pulmonary disease with (acute) exacerbation; Z68.41 Body mass index [BMI] 40.0-44.9, adult; I50.43 Acute on chronic combined systolic (congestive) and diastolic (congestive) heart failure; I48.2 Chronic atrial fibrillation; F32.9 Major depressive disorder, single episode, unspecified; E83.42 Hypomagnesemia; J06.9 Acute upper respiratory infection, unspecified; R05 Cough
CPT/HCPCS: 36600; 71010; 74000; 80048; 80053; 80162; 80305; 80307; 81001; 82272; 82607; 82728; 82805; 82962; 83036; 83605; 83690; 83735; 83880; 84100; 84132; 84145; 84155; 84165; 84443; 84484; 85025; 85610; 85730; 87040; 87070; 87205; 87449; 87804; 93005; 94640; 96374; 97116-GP; 97162-GP; 97530-GP; 99285; A9270-GY; G8978-CJ-GP; G8979-CI-GP; J2405; J3475; Q9967